=== PATIENT | female | born 1975 | race African-American/Black ===

== ENCOUNTER 2022-01-09 21:48 | Emergency (ER) | payer MEDICAID | END 2022-01-09 22:35 | disposition left against medical advice (07) | LOC: ER 21:48 | DX: Z53.21 Procedure and treatment not carried out due to patient leaving prior to being seen by health care provider (principal) ==

== ENCOUNTER 2024-01-01 22:37 | Emergency (ER) | payer MEDICAID ==
[~2024-01-01] VITALS: Ht 165.1 cm; Wt 63.0 kg
[2024-01-01 22:46] VITALS: TEMP 98.2; O2SAT 100
[2024-01-01 23:58] LABS: HEMATOCRIT. 25.2 % (36.0-48.0); HEMOGLOBIN. 7.5 g/dL (12.0-16.0); MEAN CORPUSCULAR HEMOGLOBIN 18.8 pg (28.0-32.0); MEAN CORPUSCULAR HGB CONC 29.6 g/dL (31.0-37.0); MEAN CORPUSCULAR VOLUME 63.4 fL (81.0-99.0); MEAN PLATELET VOLUME 7.9 fl (7.4-10.4); PLATELET 492 x1000/uL (130-400); RED BLOOD CELL COUNT 3.97 mill/uL (4.2-5.4); RED CELL DISTRIBUTION WIDTH 23.4 % (11.6-14.6); WHITE BLOOD COUNT 6.9 x1000/uL (4.5-11.0)
[2024-01-02] MEDS: LIDOCAINE HCL 1% 20ML VIAL INFIL ONE
[2024-01-02 00:02] LABS: DIFFERENTIAL COMMENT 1
[2024-01-02 00:05] LABS: CHLORIDE 107 mEq/L (98-107); POTASSIUM 4.1 mEq/L (3.5-5.1); SODIUM 139 mEq/L (136-145)
[2024-01-02 00:06] LABS: CARBON DIOXIDE 23 mEq/L (21-32)
[2024-01-02 00:11] LABS: CREATININE 0.9 mg/dL (0.6-1.0); GLUCOSE 92 mg/dL (70-105); UREA NITROGEN BLOOD 8 mg/dL (9-23)
[2024-01-02 00:16] LABS: HCG SCREEN NEGATIVE
[2024-01-02] MEDS: KETOROLAC 30MG/ML VIAL IM ONE (00:33)
[2024-01-02] MEDS: LIDOCAINE 5% PATCH TOP SCH (00:33)
[2024-01-02] MEDS: CYCLOBENZAPRINE 10MG TABLET PO ONE (00:33)
[2024-01-02 00:48] LABS: TROPONIN I HIGH SENSITIVITY 7 ng/L (3.0-34)
[2024-01-02 01:00] VITALS: BP 149/83; PULSE 76; RESP 16; O2SAT 100
[2024-01-02] MEDS ORDERED: CYCL10TA21 MT (01:02)
[2024-01-02] MEDS ORDERED: NAPR-681 MT (01:02)
[2024-01-02] MEDS ORDERED: LIDO700A30 TP (01:02)
[2024-01-02 02:43] LABS: HYPOCHROMASIA 2+; MICROCYTOSIS 2+; PLATELET ESTIMATE INCREASED
[2024-01-02 02:44] LABS: ANISOCYTOSIS 1+
== END 2024-01-02 02:54 | disposition home or self-care (01) ==
LOC: ER 22:37 → CANBEDREQ 01-02 02:34 → ER 01-02 02:54
DX: M25.511 Pain in right shoulder (principal); D64.9 Anemia, unspecified
CPT/HCPCS: 99284; 80048; 84703; 85025; 36415 ×2; 71045; 86850; 86900; 86901; 84484; 96372; J3490; J1885